=== PATIENT | male | born 1970 | race Caucasian/White ===

== ENCOUNTER 2019-10-20 14:21 | Emergency (ER) | payer SELFPAY ==
[~2019-10-20] VITALS: Ht 165 cm; Wt 70.3 kg
[~2019-10-20 14:21] MED LIST: CLIN300C11 PO; HYDR-3816 PO; HYDR-4226 PO; IBUP800T26 PO; NAPR-1071 PO; ONDAN4ODT PO; PNT40TEC PO; SULF-222 PO; SULF1TAB35 PO
--- NOTE | 2019-10-20 16:06 | NUR ---
Patient was advised that the ER physician is busy in another room and it may be a while longer before patient gets seen. Patient is awake and alert, resting in recliner in fast track. Spouse at bedside. No distress present.
[2019-10-20] MEDS ORDERED: NS IV 1000 ML 1,000 ML IV ONE (16:59)
[2019-10-20] MEDS ORDERED: ONDANSETRON 4 MG/2 ML (SDV) Z0FRAN IVP ONE (17:00)
[2019-10-20 17:23] LABS: BASOPHILS % (AUTO) 0 % (0-10); EOSINOPHILS # (AUTO) 0.3 10^3/uL (0.0-0.3); EOSINOPHILS % (AUTO) 3 % (0-10); HEMATOCRIT 47 % (40-54); HEMOGLOBIN 15.5 G/DL (13.3-17.7); LYMPHOCYTES # (AUTO) 1.7 X 10^3 (1.0-4.0); LYMPHOCYTES % (AUTO) 13 % (12-44); MEAN CORPUSCULAR HEMOGLOBIN 30 PG (25-34); MEAN CORPUSCULAR HGB CONC 33 G/DL (32-36); MEAN CORPUSCULAR VOLUME 90 FL (80-99); MONOCYTES # (AUTO) 0.8 X 10^3 (0.0-1.0); MONOCYTES % (AUTO) 6 % (0-12); NEUTROPHILS # (AUTO) 10.4 X 10^3 (1.8-7.8); NEUTROPHILS % (AUTO) 78 % (42-75); PLATELET COUNT 240 10^3/uL (130-400); RED CELL DISTRIBUTION WIDTH 13.7 % (10.0-14.5); WHITE BLOOD COUNT 13.3 10^3/uL (4.3-11.0)
[2019-10-20] MEDS ORDERED: fentaNYL INJECTION 100 MCG/2 ML AMP IVP ONE (17:30)
[2019-10-20 17:50] LABS: ALANINE AMINOTRANSFERASE 107 U/L (0-55); ALBUMIN 3.8 GM/DL (3.2-4.5); ALKALINE PHOSPHATASE 91 U/L (40-136); BILIRUBIN,TOTAL 0.3 MG/DL (0.1-1.0); BUN/CREATININE RATIO 19; CALCIUM 8.8 MG/DL (8.5-10.1); CARBON DIOXIDE 23 MMOL/L (21-32); CHLORIDE 107 MMOL/L (98-107); CREATININE SERUM 0.83 MG/DL (0.60-1.30); GFR ESTIMATED > 60; GLUCOSE 91 MG/DL (70-105); LIPASE 143 U/L (8-78); POTASSIUM 4.4 MMOL/L (3.6-5.0); SODIUM 139 MMOL/L (135-145)
--- NOTE | 2019-10-20 18:10 | NUR ---
Patient report taken from Lianna Tong RN.
[2019-10-20] MEDS ORDERED: CATHETER FLUSH 10 ML SYR IV PRN (18:30)
[2019-10-20] MEDS ORDERED: IOHEXOL 350 MG/ML 100 ML (OMNIPAQUE 350) VIAL IV ONE (18:30)
[2019-10-20] MEDS ORDERED: NS 100 ML (IVPB) BAG IV ONE (18:30)
[2019-10-20] MEDS ORDERED: HOLD METFORMIN - RECEIVED CONTRAST 20 ML VIAL IV SCH (18:30)
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
[2019-10-20 18:58] LABS: BILIRUBIN,URINE NEGATIVE (NEGATIVE); CLARITY,URINE CLEAR; COLOR,URINE YELLOW; GLUCOSE, URINE (UA) NEGATIVE (NEGATIVE); KETONES,URINE NEGATIVE (NEGATIVE); LEUKOCYTE ESTERASE ,URINE NEGATIVE (NEGATIVE); NITRITE,URINE NEGATIVE (NEGATIVE); PROTEIN,URINE NEGATIVE (NEGATIVE)
--- NOTE | 2019-10-20 19:05 | Diagnostic Imaging Report ---
INDICATION: Right-sided flank pain. TECHNIQUE: Multiple contiguous axial images were obtained through the abdomen and pelvis after administration of intravenous contrast. Auto Exposure Controls were utilized during the CT exam to meet ALARA standards for radiation dose reduction. There is no prior study for comparison. The visualized portions of the lung bases are clear. There were no pleural fluid collections. There is no free intraperitoneal air. The liver and gallbladder appear unremarkable. Spleen is not enlarged and shows no focal lesions. The pancreas and adrenals appear normal. There is a horseshoe kidney noted. There is no hydronephrosis on either side of the horseshoe kidney. There is a small nonocclusive stone on the left side of the kidney. There is no retroperitoneal mass or adenopathy. There is no ascites. There are a few scattered fluid-filled loops of small bowel which may represent enteritis, but no evidence of small bowel obstruction. Colonic loops show moderate stool throughout the colon. The appendix appears normal. IMPRESSION: No abdominal mass or abnormal fluid collection. There is a horseshoe kidney with no hydronephrosis. There is a small nonocclusive stone on the left side of the horseshoe kidney. There are a few scattered fluid-filled loops of small bowel which may represent enteritis but no overt obstruction. There is prominent stool throughout the colon. Dictated by: Dictated on workstation # [id number]
[2019-10-20 19:07] LABS: AMORPHOUS SEDIMENT,UR FEW AMOR URATES /LPF; BACTERIA,URINE TRACE /HPF; WBC,URINE 0-2 /HPF
[2019-10-20] MEDS ORDERED: KETOROLAC 30 MG/ML VIAL IVP ONE (19:15)
[2019-10-20] MEDS ORDERED: ONDA4TAB11 SL (19:47)
[2019-10-20 19:52] VITALS: BP 105/77
== END 2019-10-20 19:55 | disposition home or self-care (01) ==
LOC: EDUNIT# 14:21 → ER 14:22
DX: R10.11 Right upper quadrant pain (principal); R11.2 Nausea with vomiting, unspecified; R74.8 Abnormal levels of other serum enzymes; Q63.1 Lobulated, fused and horseshoe kidney; F17.210 Nicotine dependence, cigarettes, uncomplicated
CPT/HCPCS: 36415; 74177; 80053; 81000; 83690; 85025; 96361; 96374; 96375